=== PATIENT | male | born 1940 | race Caucasian/White ===

== ENCOUNTER → 2016-12-05 | Outpatient (CLI) | payer OTHER ==
[~2016-12-05] MED LIST: METF-384 PO
[2016-12-05 12:25] LABS: BLOOD UREA NITROGEN 20 mg/dl (7-18); CARBON DIOXIDE 26 mmol/L (21-32); CHLORIDE 106 mmol/L (98-107); GLUCOSE 160 mg/dl (70-99); POTASSIUM 3.6 mmol/L (3.5-5.1); SODIUM 140 mmol/L (136-145)
[2016-12-05 12:40] LABS: CALCIUM 9.9 mg/dl (8.5-10.1)
[2016-12-05 13:16] LABS: ESTIMATED AVERAGE GLUCOSE 137 mg/dl; HA1C FLAG Normal (Normal)
== END | disposition home or self-care (01) ==
LOC: C.LABPVFM 10:50
PROVIDERS: ATTEND Family Medicine
DX: E11.65 Type 2 diabetes mellitus with hyperglycemia (principal)

== ENCOUNTER → 2017-05-09 | Outpatient (CLI) | payer OTHER ==
[2017-05-09 12:41] LABS: BLOOD UREA NITROGEN 28 mg/dl (7-18); BUN/CREATININE RATIO 31.1 (10-20); CALCIUM 8.9 mg/dl (8.5-10.1); CARBON DIOXIDE 25 mmol/L (21-32); CHLORIDE 108 mmol/L (98-107); CHOLESTEROL 187 mg/dl (0-200); CREATININE 0.91 mg/dl (0.60-1.40); GLUCOSE 128 mg/dl (70-99); POTASSIUM 3.5 mmol/L (3.5-5.1); SODIUM 141 mmol/L (136-145)
[2017-05-09 12:44] LABS: CHOLESTEROL/HDL RATIO 2.9; HDL CHOLESTEROL 64 mg/dl; LDL CHOLESTEROL CALCULATED 110 mg/dl; TRIGLYCERIDES 65 mg/dl (0-150); VERY LOW DENSITY LIPOPROT CALC 13 mg/dl
[2017-05-09 13:42] LABS: ESTIMATED AVERAGE GLUCOSE 131 mg/dl; HA1C FLAG Normal (Normal)
== END | disposition home or self-care (01) ==
LOC: C.LABPVFM 07:40
PROVIDERS: ATTEND Family Medicine
DX: Z00.00 Encounter for general adult medical examination without abnormal findings (principal); E11.65 Type 2 diabetes mellitus with hyperglycemia; E78.5 Hyperlipidemia, unspecified

== ENCOUNTER → 2017-10-15 | Outpatient (CLI) | payer BC ==
[2017-10-15 17:56] LABS: BLOOD UREA NITROGEN 22 mg/dl (7-18); CALCIUM 8.7 mg/dl (8.5-10.1); CARBON DIOXIDE 25 mmol/L (21-32); CREATININE 0.94 mg/dl (0.60-1.40); GLUCOSE 115 mg/dl (70-99); POTASSIUM 3.8 mmol/L (3.5-5.1); SODIUM 138 mmol/L (136-145)
[2017-10-16 05:56] LABS: HEMOGLOBIN A1C 6.3 % (4.5-5.6)
== END | disposition home or self-care (01) ==
LOC: C.LABPVFM 11:23
PROVIDERS: ATTEND Family Medicine
DX: I10 Essential (primary) hypertension (principal); E11.9 Type 2 diabetes mellitus without complications

== ENCOUNTER → 2018-03-05 | Outpatient (CLI) | payer BC ==
[2018-03-05 13:17] LABS: BASO % 0.6 %; BASO ABS # 0.04 K/uL (0-0.2); EOS % 1.7 %; EOS ABS # 0.12 K/uL (0-0.5); HEMATOCRIT 38.8 % (42-52); HEMOGLOBIN 13.3 g/dL (14.0-18.0); IG# 0.01 K/uL (0.00-0.02); LYMPH % 23.8 %; LYMPH ABS # 1.64 K/uL (1.2-3.4); MEAN CELL VOLUME 91.1 fL (80-100); MEAN CORPUSCULAR HEMOGLOBIN 31.2 pg (25-34); MEAN CORPUSCULAR HGB CONC 34.3 g/dl (32-36); MEAN PLATELET VOLUME 9.9 fL (7.4-10.4); MONO % 5.5 %; MONO ABS # 0.38 K/uL (0.11-0.59); NEUT % 68.3 %; NEUT ABS # 4.71 K/uL (1.4-6.5); PLATELET COUNT 263 K/uL (130-400); RED CELL DISTRIBUTION WIDTH CV 13.6 % (11.5-14.5); RED CELL DISTRIBUTION WIDTH SD 44.9 fL (36.4-46.3)
[2018-03-05 14:19] LABS: HEMOGLOBIN A1C 6.6 % (4.5-5.6)
[2018-03-05 14:21] LABS: ALBUMIN 3.8 gm/dl (3.4-5.0); ALKALINE PHOSPHATASE 76 U/L (45-117); ALT/SGPT 18 U/L (12-78); AST/SGOT 14 U/L (15-37); BLOOD UREA NITROGEN 27 mg/dl (7-18); CALCIUM 8.4 mg/dl (8.5-10.1); CARBON DIOXIDE 23 mmol/L (21-32); CHOLESTEROL 166 mg/dl (0-200); CREATININE 1.01 mg/dl (0.60-1.40); GLUCOSE 125 mg/dl (70-99); LDL CHOLESTEROL CALCULATED 88 mg/dl; POTASSIUM 3.6 mmol/L (3.5-5.1); SODIUM 136 mmol/L (136-145); TOTAL PROTEIN 7.6 gm/dl (6.4-8.2)
== END | disposition home or self-care (01) ==
LOC: C.LABPVFM 08:53
PROVIDERS: ATTEND Family Medicine
DX: Z87.19 Personal history of other diseases of the digestive system (principal)

== ENCOUNTER 2025-06-11 13:03 | Inpatient (IN) ==
--- NOTE | 2025-06-11 13:56 | Emergency Department Note ---
Impression & Plan Biliary obstruction, Jaundice, Liver mass ED Provider Note Name: JULIANNE HENDRICKSON Age: 85 Sex: Male Arrives Via: Walk-In Informant: Patient, daughter, patient ED Provider: Anthony Albarado MD Chief Complaint: Jaundice Impression: As per impression above Medical Decision Makin-year-old gentleman arrives for evaluation of jaundice. Patient notes that he has been having worsening yellowing of skin over the last week and a half or so associate with itching and difficulty sleeping. Family eventually convinced patient to come into the ER today. Patient denies any abdominal pain or other concerning signs or symptoms. Examination he is severely jaundice but tired appearing but otherwise no distress with good vital signs. Laboratory workup obtained does reveal significantly elevated bilirubin with mild hyponatremia. A CT scan of the abdomen pelvis with IV contrast does reveal a large mass at the central liver/gallbladder likely obstructing the biliary drain. Discussed with patient and daughter. They were understandably upset. Discussed the need for a higher level of care given the fact that this will need advanced ERCP and availability here is unable to go biliary bifurcation. They agreeable to transfer. Patient is stable. He is having some increasing itching thus was given IV Benadryl. Had multiple long discussions with [facility] transfer center. After extensive discussion with surgeon oncologist and ERCP specialist plan will be to admit the patient to our facility to further stabilize and continue workup. They will be unable to do the ERCP until Sunday or Sunday. Given the patient's age and frail status it would be reasonable to keep him here until bed is available at their facility and we can transfer him down. In mean time [facility] has requested CT Chest be obtained, as well as sending a CA 19-9 level. Patient is afebrile I do not feel this is infectious I would hold off on any antibiotics at this time. Rediscussed with team here. Given mildly elevated INR with obstruction will give some Vitamin K Triage/Nursing Notes reviewed by Me External Chart Review by me: PCP note from 02/04 was reviewed for past medical history Differential:Liver cancer, gallbladder cancer urine biliary obstruction, close pharmacy is recommending pancreatic cancer, cholangitis, anemia/hemolytic, many other pathologies considered Vital Signs: reviewed and remarkable for no significant abnormalities Interventions: Normal saline bolus, Benadryl IV Labs:ED labs Reviewed by me and remarkable for elevated bilirubin 27, mild hyponatremia 128, INR 1.3, bicarb 15, AST 48 and alk phos 513 Imaging: X ray results are stated below per my interpretation: Chest: 1 view: No infiltrate, no effusion, normal cardiac border. CT abdomen pelvis with IV contrast as per my informal interpretation of the central right liver near the gallbladder with surrounding edema. EKG:As per my interpretation. Indication weakness. Sinus rhythm 87 beats minute QTc of 457. There is no ectopy nor ischemia. No previous for comparison. Cardiac/Tele Monitoring: Cardiac Monitoring: An Order was placed for continuous cardiac monitoring. The monitor shows a rate of 80 with a normal sinus rhythm. Consults:Discussed with Dr. oLtt of gastroenterology here [facility] who feels patient would likely benefit from a tertiary center at this point. Does not feel he would be able to pass a stent past the bifurcation at this point. Reviewed with Dr Virk & Dr Tom at [facility]. Extensive discussion. Plan bring in [facility] and await Sunday before sending down when ERCP available on Sunday there. In mean time optimize medically and further testing. Discussed with Dr Hubbard [place] Hospitalist. Plan: Disposition:Transfer accepted at [facility] however due to no beds will plan to admit to our facility until beds are available and they have ERCP capability. Condition: Fair History of Present Illness: 85-year-old male arrives for evaluation of jaundice. Patient states that he has been having itching over the last several days. Family notes that he has been quite yellow over the last week. He been urinating what looked like blood at home. Patient notes that he feels very tired and exhausted. He does not well. He denies any abdominal pain, back pain, chest pain, shortness of breath, headache, neck pain, leg swelling or any other concerning signs or symptoms. Other than feeling tired he states he has been doing his normal activities. He has no history of abdominal issues. He does have a history of diabetes. He has no previous abdominal surgeries. Past Medical History: Diabetes and hypertension and dyslipidemia Home Medications: Metformin, alfuzosin, tadalafil Allergies: Jardiance Vitals:Blood Pressure: 119/68, Pulse 88, RR 16, T 36.5C, O2 94% on RA Physical Exam: GENERAL: Patient is tired appearing and in minimal distress. Very jaundice RESPIRATORY: No dyspnea. Clear to auscultation and equal bilaterally other than some crackles at bases. CARDIOVASCULAR: Regular rate and rhythm.No murmur appreciated. GASTROINTESTINAL: Abdomen soft, non-tender, no peritonitis. EXTREMITIES: Jaundice, trace bilateral ankle edema. Normal motion all extremities, no cyanosis, no edema. NEUROLOGIC: Alert and oriented. No focal neurologic deficits appreciated SKIN: No rash, no jaundice, no diaphoresis. PSYCH: Appropriate GCS: 15 ED Course: Times/Reassessments: Multiple repeat evaluation of the patient. Stable throughout. Did note worsening itching thus was ordered Benadryl. Critical Care: I have personally spent 40 minutes of critical care time in the direct management of this patient. Acute obstructive biliary pathology secondary to mass causing severe elevation of bilirubin putting patient at significantly high risk 3-month mortality with extended coordination of care between tertiary care center and this facility. This was a life/limb threatening event. This 40 minutes is in excess of all separately billable procedures. Anthony Albarado MD Past Med/Surg History Problem List (Updated 06/12/25 @ 00:08 by Will Hubbard MD) Elevated INR Metabolic acidosis, normal anion gap (NAG) Anemia Liver mass (Acute) Jaundice (Acute) Biliary obstruction (Acute) ED (erectile dysfunction) Left knee pain HTN (hypertension) (Chronic) Hyperlipidemia (Chronic) DM (diabetes mellitus) (Chronic) Routine health maintenance (Chronic) Crushing injury of fifth finger of right hand (Acute) Finger laceration with complication (Acute) Nailbed laceration, finger (Acute) Nailbed laceration, finger (Acute) Open fracture of tuft of distal phalanx of finger (Acute) Medical History (Updated 06/12/25 @ 00:08 by Will Hubbard MD) No pertinent past medical history Surgical History No history of previous surgery Family History Other No pertinent family history Denies family history of Ovarian cancer Prostate cancer Myocardial infarction Breast cancer Colorectal cancer Social History Smoking Status: Current some day smoker Tobacco Type: Cigarettes Age Started Using Tobacco: 19; packs per day: 0.2; Cigarettes Per Day: 0-3 a day; Second Hand Exposure: No; Do You Dip or Chew Tobacco: No; Tobacco Cessation Education Requested by Patient: No Hx Alcohol Use: Yes Alcohol type: beer Alcohol Intake Frequency: 4 or More x per/Week Alcohol Intake Frequency Comment: One beer in the evening daily Hx Substance Use: No Preferred Language: Polish Communication Ability: Effective Hearing Ability: Normal Homicide Investigator Required: No Beliefs That Will Affect Care: Mormon marital status: / Current Living Situation: Alone current occupational status: retired How many Children do You have: 3 Other Information That Helps Us Care for You: No Feels Safe at Home: Yes Safety Concerns: Feels Safe At This Time Childhood Exposure to Second-Hand Smoke: Yes Diet: diabetic and regular caffeine: Yes (Coffee ) during the past year weight has: remained stable Dental Care, Regularly: No Physical Activity Frequency: Daily Physical Activity Frequency Comment: Daily house and yard work Seatbelt Use: always Sunscreen Use: No Do you think of yourself as: straight/heterosexual Sexual Activity: has been sexually active, but not for at least 12 months Gender Identity: Male Assistive Devices: Glasses Allergies Allergies Allergy/AdvReac Type Severity Reaction Status Date / Time empagliflozin Allergy Mild Fatigued Verified 06/11/25 16:10 [From Jardiance] Home Meds Home Medications Medication Instructions Recorded Confirmed alfuzosin 10 mg tablet,extended 10 mg PO QPM 06/11/25 06/11/25 release 24 hr metformin 1,000 mg tablet 1,000 mg PO BID 06/11/25 06/11/25 Previous Rx's Medication Instructions Recorded blood sugar diagnostic #50 ea 01/19/25 tadalafil 5 mg tablet 5 mg PO DAILY PRN sexual activity 02/04/25 #10 tabs Results & Data (ED) Vital Signs Vital Signs - 24 hr 06/11/25 14:12 06/11/25 14:21 06/11/25 14:24 Pulse Rate 63 84 88 Pulse Rate from SpO2 Sensor 64 84 89 Respiratory Rate 15 16 27 H Blood Pressure Blood Pressure Mean Pulse Oximetry 99 99 99 06/11/25 14:30 06/11/25 14:30 06/11/25 14:33 Pulse Rate 79 Pulse Rate from SpO2 Sensor Respiratory Rate Blood Pressure 136/88 136/88 Blood Pressure Mean 107 107 Pulse Oximetry 06/11/25 14:33 06/11/25 14:57 06/11/25 15:00 Pulse Rate 82 Pulse Rate from SpO2 Sensor 80 80 Respiratory Rate 14 13 Blood Pressure 148/82 H Blood Pressure Mean 96 Pulse Oximetry 99 99 06/11/25 15:00 06/11/25 15:18 06/11/25 15:30 Pulse Rate Pulse Rate from SpO2 Sensor 72 77 Respiratory Rate 19 14 Blood Pressure 149/96 H Blood Pressure Mean 126 Pulse Oximetry 100 99 06/11/25 15:39 06/11/25 15:48 06/11/25 15:51 Pulse Rate 88 89 84 Pulse Rate from SpO2 Sensor 93 H 90 86 Respiratory Rate 16 15 13 Blood Pressure 164/80 H Blood Pressure Mean 108 Pulse Oximetry 100 100 100 06/11/25 16:10 06/11/25 16:12 06/11/25 16:36 Pulse Rate 87 81 Pulse Rate from SpO2 Sensor 88 81 Respiratory Rate 26 H 14 Blood Pressure 164/80 H Blood Pressure Mean 122 Pulse Oximetry 100 99 06/11/25 16:48 Pulse Rate 82 Pulse Rate from SpO2 Sensor 82 Respiratory Rate 17 Blood Pressure Blood Pressure Mean Pulse Oximetry 99 Laboratory Data 06/12/25 07:10 06/12/25 07:10 Lab Results 06/11/25 Range/Units 13:31 WBC 7.24 (4.8-10.8) K/ul RBC 3.37 L (4.70-6.10) M/uL Hgb 10.1 L (14.0-18.0) g/dl Hct 28.2 L (42.0-52.0) % MCV 83.7 (80.0-100.0) fL MCH 30.0 (25.0-34.0) pg MCHC 35.8 (32.0-36.0) g/dL RDW Std Deviation 57.3 H (36.4-46.3) fL RDW Coeff of Javier 19.2 H (11.5-14.5) % Plt Count 425 H (130-400) K/uL MPV 9.4 (9.4-12.4) fL Immature Gran % (Auto) 1.2 % Neut % (Auto) 75.9 % Lymph % (Auto) 13.0 % Dawes % (Auto) 7.3 % Eos % (Auto) 1.4 % Baso % (Auto) 1.2 % Neut # (Auto) 5.49 (1.40-6.50) K/uL Lymph # (Auto) 0.94 L (1.20-3.40) K/uL Dawes # (Auto) 0.53 (0.11-0.59) K/uL Eos # (Auto) 0.10 (0.00-0.50) K/uL Baso # (Auto) 0.09 (0.00-0.20) K/uL Immature Gran # (Auto) 0.09 (0.01-0.20) K/uL PT 13.4 H (9.0-12.0) Seconds INR 1.3 H (0.9-1.1) APTT 28 (21-31) Seconds PTT Ratio 1.0 Sodium 128 L (136-145) mmol/L Potassium 3.6 (3.5-5.1) mmol/L Chloride 99 (98-107) mmol/L Carbon Dioxide 18 L (21-32) mmol/L Anion Gap 11 (3-11) BUN 21 (6-23) mg/dl Creatinine 1.19 (0.6-1.4) mg/dl Est Cr Clr Drug Dosing 51.0 ml/min eGFR 60.23 BUN/Creatinine Ratio 17.6 (10-20) Glucose 209 H (70-99(Fasting)) mg/dl Calcium 9.0 (8.6-10.3) mg/dl Total Bilirubin 27.7 H (0.2-1.0) mg/dl AST 48 H (13-39) U/L ALT 42 (7-52) U/L Alkaline Phosphatase 513 H (34-104) U/L Troponin I High Sens 9.1 (0-20) pg/ml Total Protein 7.1 (6.0-8.3) gm/dl Albumin 3.4 (3.4-5.0) gm/dl Globulin 3.7 (2.5-4.0) gm/dl Albumin/Globulin Ratio 0.9 (0.9-2) Lipase TNP Administered Medications Acetaminophen (Acetaminophen 325 Mg Tab) 650 mg PO Q4H PRN PRN Reason: Pain or Fever Stop: 07/12/25 12:40 Last Admin: 06/12/25 13:07 Dose: 650 mg Documented By: RONNIE Cholestyramine Resin (Cholestyramine Light 4 Gm Pkt) 4 gm PO BID@1000,2200 MOUNA Stop: 07/11/25 21:59 Last Admin: 06/12/25 08:51 Dose: 4 gm Documented By: Admin: 06/11/25 23:11 Dose: 4 gm Documented By: SORIN Enoxaparin Sodium (Enoxaparin Inj 40 Mg/0.4 Ml Syr) 40 mg SQ QPM MOUNA Stop: 07/11/25 20:59 Last Admin: 06/11/25 21:05 Dose: 40 mg Documented By: SORIN Insulin Aspart (Insulin Aspart Per Unit Charge) 0 units SC ACHS MOUNA Stop: 07/11/25 20:59 Last Admin: 06/12/25 11:59 Dose: 3 units Documented By: RONNIE Co-signed By: DARIAN Admin: 06/12/25 08:50 Dose: 1 units Documented By: RONNIE Co-signed By: DARIAN Admin: 06/11/25 20:48 Dose: 1 units Documented By: SORIN Co-signed By: FARIDEH Tamsulosin HCl (Tamsulosin Hcl 0.4 Mg Cap) 0.4 mg PO QPM MOUNA Stop: 07/11/25 20:59 Last Admin: 06/11/25 21:05 Dose: 0.4 mg Documented By: SORIN Discontinued Medications Diphenhydramine HCl (Diphenhydramine 50 Mg/Ml Vial) 25 mg IV NOW STA Stop: 06/11/25 15:40 Last Admin: 06/11/25 15:45 Dose: 25 mg Documented By: JORDI Diphenhydramine HCl (Diphenhydramine 50 Mg/Ml Vial) 12.5 mg IV ONE ONE Stop: 06/12/25 01:50 Last Admin: 06/12/25 02:20 Dose: 12.5 mg Documented By: SORIN Sodium Chloride (Nss) 1,000 mls @ 125 mls/hr IV .Q8H STA Stop: 06/12/25 00:33 Last Infusion: 06/11/25 19:00 Dose: Infused Documented By: Admin: 06/11/25 16:45 Dose: 125 mls/hr Documented By: JORDI Sodium Bicarbonate 150 meq/ (Dextrose) 1,150 mls @ 100 mls/hr IV .[id number] MOUNA Stop: 06/12/25 04:14 Last Infusion: 06/12/25 05:01 Dose: Infused Documented By: Admin: 06/11/25 17:23 Dose: 100 mls/hr Documented By: JORDI Phytonadione 5 mg/ Dextrose 50.5 mls @ 101 mls/hr IV ONE ONE Stop: 06/12/25 00:31 Last Infusion: 06/12/25 01:01 Dose: Infused Documented By: Admin: 06/12/25 00:22 Dose: 101 mls/hr Documented By: SORIN Ioversol (Optiray 320 100ml) 92 ml IV ONCE ONE Stop: 06/11/25 14:51 Last Admin: 06/11/25 14:50 Dose: 92 ml Documented By: GREGORIO Ioversol (Optiray 320 100ml) 90 ml IV ONCE ONE Stop: 06/11/25 18:00 Last Admin: 06/11/25 17:59 Dose: 90 ml Documented By: SNOW Lidocaine (Lidocaine 5% 1 Patch) 1 patch TD NOW STA Stop: 06/12/25 01:49 Last Admin: 06/12/25 03:19 Dose: 1 patch Documented By: SORIN Potassium Chloride (Potassium Chloride Crtab 20 Meq Tabcr) 40 meq PO NOW STA Stop: 06/12/25 10:32 Last Admin: 06/12/25 12:02 Dose: 40 meq Documented By: RONNIE Imaging Data Radiologist's Impression: Chest X-Ray 06/11/25 13:16 XR chest 1V portable CLINICAL HISTORY: Chest pain, nonspecific COMPARISON STUDY: None FINDINGS: Heart size and pulmonary vasculature are normal. There is mild stranding at the right lung base medially with partial obscuration of the right hemidiaphragm. No other consolidation or pleural effusion seen. No pneumothorax. IMPRESSION: Atelectasis versus early pneumonia right lung base. ACT 112: Negative or not required by law. Electronically signed by: Hu Laird M.D. 06/11/2025 2:03 PM Abdomen/Pelvis CT 06/11/25 14:[address] WITH IV CONTRAST CT DOSE: 1583.95 mGy.cm HISTORY: painless jaundice TECHNIQUE: Multiaxial CT images of the abdomen and pelvis were performed following the IV administration of 90 cc of Optiray, A dose lowering technique was utilized adhering to the principles of ALARA. COMPARISON STUDY: None FINDINGS: There is mild scarring or atelectasis in the lung bases. There are coronary artery calcifications. ABDOMEN: There are gallstones without evidence of acute cholecystitis. One of the gallstones is at the gallbladder neck or proximal cystic duct. There is a 7 cm lobulated hypodense mass anterior right hepatic lobe which invades or originates from the gallbladder. The mass invades the region of the confluence of the right and left hepatic ducts and proximal common bile duct. There is mild to moderate intrahepatic biliary dilatation. Mid to distal common bile duct is nondilated. Spleen, pancreas, and adrenal glands are unremarkable. Kidneys show no hydronephrosis. There are scattered atherosclerotic calcifications. No abdominal aortic aneurysm. Pelvis: Prostate is markedly enlarged. Urinary bladder is distended. There is sigmoid diverticulosis. No acute diverticulitis. No bowel inflammation or obstruction. Normal appendix. No enlarged adenopathy. Osseous structures: There is moderate lumbar degenerative disc disease. There are moderate degenerative changes at the hips. IMPRESSION: Malignant appearing mass involving the central liver and gallbladder causing mild to moderate intrahepatic biliary dilatation. Differential diagnosis includes gallbladder carcinoma and cholangiocarcinoma. No evidence of metastatic disease seen. Otherwise as described. ACT 112: Positive. There are findings on this exam that require communication between the performing entity and the patient following Patient Test Result Information Act ([place] Act 112) guidelines. The above report was generated using voice recognition software. It may contain grammatical, syntax or spelling errors. Electronically signed by: Hu Laird M.D. 06/11/2025 3:16 PM Discharge Plan Visit Data Chief Complaint: Referred by Doctor Stated Complaint: JAUNDICE, BLOOD IN URINE, ITCHY ALL OVER ED Provider: Anthony Albarado Discharge Problem: Biliary obstruction, Jaundice, Liver mass Patient Disposition: Admitted As Inpatient Condition: Fair Discharge Instructions Interventions: ED Discharge Assessment Last Done: 06/11/25 19:55
[2025-06-11 14:01] LABS: Hematocrit (blood only) 28.2 % (42.0-52.0); Hemoglobin 10.1 g/dl (14.0-18.0); Immature Granulocytes # (auto) 0.09 K/uL (0.01-0.20); Immature Granulocytes % (auto) 1.2 %; Mean Corpuscular Hemoglobin 30.0 pg (25.0-34.0); Mean Corpuscular Volume 83.7 fL (80.0-100.0); Platelet Count 425 K/uL (130-400); RDW Standard Deviation 57.3 fL (36.4-46.3); Red Blood Count 3.37 M/uL (4.70-6.10); White Blood Count 7.24 K/ul (4.8-10.8)
--- NOTE | 2025-06-11 14:05 | XRay Report ---
XR chest 1V portable CLINICAL HISTORY: Chest pain, nonspecific COMPARISON STUDY: None FINDINGS: Heart size and pulmonary vasculature are normal. There is mild stranding at the right lung base medially with partial obscuration of the right hemidiaphragm. No other consolidation or pleural effusion seen. No pneumothorax. IMPRESSION: Atelectasis versus early pneumonia right lung base. ACT 112: Negative or not required by law. Electronically signed by: Hu Laird M.D. 06/11/2025 2:03 PM
[2025-06-11 14:20] LABS: Alanine Aminotransferase 42 U/L (7-52); Albumin Globulin Ratio 0.9 (0.9-2); Albumin Level 3.4 gm/dl (3.4-5.0); Alkaline Phosphatase 513 U/L (34-104); Anion Gap 11 (3-11); Bilirubin,Total 27.7 mg/dl (0.2-1.0); Blood Urea Nitrogen 21 mg/dl (6-23); Calcium 9.0 mg/dl (8.6-10.3); Carbon Dioxide 18 mmol/L (21-32); Chloride 99 mmol/L (98-107); Creatinine Clr Calc Pharmacy 51.0 ml/min; Globulin 3.7 gm/dl (2.5-4.0); Glucose 209 mg/dl (70-99(Fasting)); Potassium 3.6 mmol/L (3.5-5.1); Sodium 128 mmol/L (136-145); Total Protein 7.1 gm/dl (6.0-8.3)
[2025-06-11 14:29] LABS: INR 1.3 (0.9-1.1); Partial Thromboplastin Time 28 Seconds (21-31); Prothrombin Time 13.4 Seconds (9.0-12.0)
[2025-06-11] MEDS: OPTIRAY 320 100ml IV ONE ×2 (14:50→17:59)
--- NOTE | 2025-06-11 15:18 | CT Scan Report ---
ABDOMEN AND PELVIS CT WITH IV CONTRAST CT DOSE: 1583.95 mGy.cm HISTORY: painless jaundice TECHNIQUE: Multiaxial CT images of the abdomen and pelvis were performed following the IV administrat ion of 90 cc of Optiray, A dose lowering technique was utilized adhering to the principles of ALARA. COMPARISON STUDY: None FINDINGS: There is mild scarring or atelectasis in the lung bases. There are coronary artery calcific ations. ABDOMEN: There are gallstones without evidence of acute cholecystitis. One of the gallstones is at th e gallbladder neck or proximal cystic duct. There is a 7 cm lobulated hypodense mass anterior right h epatic lobe which invades or originates from the gallbladder. The mass invades the region of the conf luence of the right and left hepatic ducts and proximal common bile duct. There is mild to moderate i ntrahepatic biliary dilatation. Mid to distal common bile duct is nondilated. Spleen, pancreas, and a drenal glands are unremarkable. Kidneys show no hydronephrosis. There are scattered atherosclerotic c alcifications. No abdominal aortic aneurysm. Pelvis: Prostate is markedly enlarged. Urinary bladder is distended. There is sigmoid diverticulosis. No acute diverticulitis. No bowel inflammation or obstruction. Normal appendix. No enlarged adenopat hy. Osseous structures: There is moderate lumbar degenerative disc disease. There are moderate degenerati ve changes at the hips. IMPRESSION: Malignant appearing mass involving the central liver and gallbladder causing mild to mode rate intrahepatic biliary dilatation. Differential diagnosis includes gallbladder carcinoma and chola ngiocarcinoma. No evidence of metastatic disease seen. Otherwise as described. ACT 112: Positive. There are findings on this exam that require communication between the performing entity and the patient following Patient Test Result Information Act ([place] Act 112) guidelines. The above report was generated using voice recognition software. It may contain grammatical, syntax o r spelling errors. Electronically signed by: Hu Laird M.D. 06/11/2025 3:16 PM
[2025-06-11] MEDS: diphenhydrAMINE 50 MG/ML VIAL IV STA (15:45)
--- NOTE | 2025-06-11 15:56 | Electrocardiogram Report ---
Test Reason : Blood Pressure : */* mmHG Vent. Rate : 87 BPM Atrial Rate : 87 BPM P-R Int : 190 ms QRS Dur : 98 ms QT Int : 380 ms P-R-T Axes : 42 -18 37 degrees QTcB Int : 457 ms Normal sinus rhythm Normal ECG No previous ECGs available Confirmed by Erich Hernandez ([id number]) on 06/11/2025 3:56:15 PM Referred By: Confirmed By: Erich Hernandez
[2025-06-11] MEDS ORDERED: STAT IV/IM STA (16:44)
[2025-06-11] MEDS: SODIUM CHLORIDE 0.9% 1,000 ML IV STA (16:45)
[2025-06-11 17:13] LABS: Base Excess VBG -5.1 mEq/L; HCO3 VBG 20 mmol/L; Oxygen Saturation VBG < 60.0 %; PCO2 VBG 36 mmHg (38-50); PO2 VBG 30 mmHg; pH VBG 7.35 (7.36-7.41)
--- NOTE | 2025-06-11 17:14 | History & Physical Report ---
Date of Service June 11, 2025 Assessment & Plan (1) Anemia: (2) Metabolic acidosis, normal anion gap (NAG): (3) DM (diabetes mellitus): (4) Hyperlipidemia: (5) HTN (hypertension): (6) Biliary obstruction: (7) Jaundice: (8) Liver mass: (9) Elevated INR: Plan 85 year old male presents to the ER with jaundice and icteric pruritus #Malignant appearing mass with biliary obstruction Discussed with ER provider and planned transfer to [facility] Agree with admission rather than discharge due to higher risk of sepsis - if patient were to spike a fever would need IV Zosyn, close monitoring for vasopressors and emergent transfer to [place] Otherwise if stable, will monitor LFTs and transfer to [place] whenever bed is available - latest Sunday as planning ERCP on Sunday Low fat diet Lipase sent but no abdominal pain on exam or pancreatitis findings on CT to suggest need for urgent transfer for this - will need to be send out given icteric blood No current fever or WBC to suggest current infection CA19-9 recommended by [facility] although I am more concerned about mass from his liver and will send AFP in addition CT chest also recommended by [facility] which appears reasonable as if malignancy perhaps we can biopsy something easier than the liver mass Start cholestyramine for icteric pruritus - although ultimate treatment is biliary drainage/stenting #Anemia Basic workup with AM labs, iron studies, B12, folate, retic count, LDH #Elevated INR Vitamin K 5mg IV Repeat INR with AM labs #Metabolic acidosis with normal anion gap / hyponatremia Mild, hypovolemic on exam with dry mucus membranes VBG pH 7.35, will give 1L sodium bicarb overnight 150 meq, repeat BMP with AM labs #Type 2 diabetes mellitus HbA1C with AM labs, previously 8.[address] metformin on hold due to scans with IV contrast Novolog as needed for correction factor overnight, will add Lantus tomorrow if needing this routinely #BPH Continue alfuzosin VTE Prophylaxis - Lovenox 40mg SQ daily Disposition - admit to med/surg Admission and Anticipated Discharge Date Admission Date: June 12, 2025 History of Present Illness Chief Complaint: Jaundiced Primary Care Provider: Tamar Oneill MD Phil Landrum is an 85 year old male who presents to the ER due to jaundice and generalized itching. He reports much worse the last 3-4 days but perhaps started noticing changes the last week. Associated with dark urine last few days. He denies any weight loss, appetite loss, change in bowels, abdominal pain, nausea or vomiting. He notes generalized intense itching. No other urinary or respiratory issues. Allergies Allergy/AdvReac Type Severity Reaction Status Date / Time empagliflozin Allergy Mild Fatigued Verified 06/11/25 16:10 [From [facility]] Home Medications Medication Instructions Recorded Confirmed Type blood sugar diagnostic #50 ea 01/19/25 02/04/25 Rx tadalafil 5 mg tablet 5 mg PO DAILY PRN sexual activity 02/04/25 06/11/25 Rx #10 tabs alfuzosin 10 mg tablet,extended 10 mg PO QPM 06/11/25 06/11/25 History release 24 hr metformin 1,000 mg tablet 1,000 mg PO BID 06/11/25 06/11/25 History Past Med/Surg History Problem List (Updated 06/12/25 @ 00:08 by Will Hubbard MD) Elevated INR Metabolic acidosis, normal anion gap (NAG) Anemia Liver mass (Acute) Jaundice (Acute) Biliary obstruction (Acute) ED (erectile dysfunction) Left knee pain HTN (hypertension) (Chronic) Hyperlipidemia (Chronic) DM (diabetes mellitus) (Chronic) Routine health maintenance (Chronic) Crushing injury of fifth finger of right hand (Acute) Finger laceration with complication (Acute) Nailbed laceration, finger (Acute) Nailbed laceration, finger (Acute) Open fracture of tuft of distal phalanx of finger (Acute) Medical History (Updated 06/12/25 @ 00:08 by Will Hubbard MD) No pertinent past medical history Surgical History No history of previous surgery Family History Other No pertinent family history Denies family history of Ovarian cancer Prostate cancer Myocardial infarction Breast cancer Colorectal cancer Social History Smoking Status: Current some day smoker Tobacco Type: Cigarettes Age Started Using Tobacco: 19; packs per day: 0.2; Cigarettes Per Day: 0-3 a day; Second Hand Exposure: No; Do You Dip or Chew Tobacco: No; Tobacco Cessation Education Requested by Patient: No Hx Alcohol Use: Yes Alcohol type: beer Alcohol Intake Frequency: 4 or More x per/Week Alcohol Intake Frequency Comment: One beer in the evening daily Hx Substance Use: No Preferred Language: Slovenian Communication Ability: Effective Hearing Ability: Normal Grape Grower Required: No Beliefs That Will Affect Care: Cheondoism marital status: / Current Living Situation: Alone current occupational status: retired How many Children do You have: 3 Other Information That Helps Us Care for You: No Feels Safe at Home: Yes Safety Concerns: Feels Safe At This Time Childhood Exposure to Second-Hand Smoke: Yes Diet: diabetic and regular caffeine: Yes (Coffee ) during the past year weight has: remained stable Dental Care, Regularly: No Physical Activity Frequency: Daily Physical Activity Frequency Comment: Daily house and yard work Seatbelt Use: always Sunscreen Use: No Do you think of yourself as: straight/heterosexual Sexual Activity: has been sexually active, but not for at least 12 months Gender Identity: Male Assistive Devices: Glasses Review of Systems Review of Systems: All systems reviewed & are unremarkable except as noted in HPI & below Physical Exam Constitutional: well developed and + ill appearing; + not well nourished and no acute distress Eyes: Icteric sclera ENMT: Mouth: + dry oral mucous membranes Respiratory: normal respiratory effort, lungs clear to auscultation Cardiovascular: RRR, no murmur, no edema Gastrointestinal (Abdomen): normal bowel sounds, soft, nontender, no hepatosplenomegaly Skin: + jaundice Neurologic: moves all extremities and awake; not confused Psychiatric: A+Ox3, euthymic affect Results & Data Results & Data Vital Signs (Past 12 Hours) Vital Signs Temp Pulse Pulse Resp BP BP Pulse Ox 06/11/25 15:51 84 13 164/80 H 100 06/11/25 15:48 89 15 100 06/11/25 15:39 88 16 100 06/11/25 15:30 149/96 H 06/11/25 15:18 14 99 06/11/25 15:00 19 100 06/11/25 15:00 148/82 H 06/11/25 14:57 13 99 06/11/25 14:33 82 14 99 06/11/25 14:33 79 06/11/25 14:30 136/88 06/11/25 14:30 136/88 06/11/25 14:24 88 27 H 99 06/11/25 14:21 84 16 99 06/11/25 14:12 63 15 99 06/11/25 14:06 74 16 153/79 H 99 06/11/25 13:48 88 16 94 06/11/25 13:45 06/11/25 13:13 36.5 C 93 H 18 119/68 98 O2 Del Method O2 Flow Rate 06/11/25 15:51 06/11/25 15:48 06/11/25 15:39 06/11/25 15:30 06/11/25 15:18 06/11/25 15:00 06/11/25 15:00 06/11/25 14:57 06/11/25 14:33 06/11/25 14:33 06/11/25 14:30 06/11/25 14:30 06/11/25 14:24 06/11/25 14:21 06/11/25 14:12 06/11/25 14:06 06/11/25 13:48 Room Air 06/11/25 13:45 Room Air 94 06/11/25 13:13 Room Air Laboratory Results Abnormal lab results 06/11/25 06/11/25 06/11/25 Range/Units 13:31 16:51 20:41 RBC 3.37 L (4.70-6.10) M/uL Hgb 10.1 L (14.0-18.0) g/dl Hct 28.2 L (42.0-52.0) % RDW Std Deviation 57.3 H (36.4-46.3) fL RDW Coeff of Javier 19.2 H (11.5-14.5) % Plt Count 425 H (130-400) K/uL Lymph # (Auto) 0.94 L (1.20-3.40) K/uL PT 13.4 H (9.0-12.0) Seconds INR 1.3 H (0.9-1.1) VBG pH 7.35 L (7.36-7.41) VBG pCO2 36 L (38-50) mmHg Sodium 128 L (136-145) mmol/L Carbon Dioxide 18 L (21-32) mmol/L Glucose 209 H (70-99(Fasting)) mg/dl POC Glucose 179 H (70-99) mg/dl Total Bilirubin 27.7 H (0.2-1.0) mg/dl AST 48 H (13-39) U/L Alkaline Phosphatase 513 H (34-104) U/L Labs reviewed Diagnostic Findings ABDOMEN AND PELVIS CT WITH IV CONTRAST CT DOSE: 1583.95 mGy.cm HISTORY: painless jaundice TECHNIQUE: Multiaxial CT images of the abdomen and pelvis were performed following the IV administration of 90 cc of Optiray, A dose lowering technique was utilized adhering to the principles of ALARA. COMPARISON STUDY: None FINDINGS: There is mild scarring or atelectasis in the lung bases. There are coronary artery calcifications. ABDOMEN: There are gallstones without evidence of acute cholecystitis. One of the gallstones is at the gallbladder neck or proximal cystic duct. There is a 7 cm lobulated hypodense mass anterior right hepatic lobe which invades or originates from the gallbladder. The mass invades the region of the confluence of the right and left hepatic ducts and proximal common bile duct. There is mild to moderate intrahepatic biliary dilatation. Mid to distal common bile duct is nondilated. Spleen, pancreas, and adrenal glands are unremarkable. Kidneys show no hydronephrosis. There are scattered atherosclerotic calcifications. No abdominal aortic aneurysm. Pelvis: Prostate is markedly enlarged. Urinary bladder is distended. There is sigmoid diverticulosis. No acute diverticulitis. No bowel inflammation or obstruction. Normal appendix. No enlarged adenopathy. Osseous structures: There is moderate lumbar degenerative disc disease. There are moderate degenerative changes at the hips. IMPRESSION: Malignant appearing mass involving the central liver and gallbladder causing mild to moderate intrahepatic biliary dilatation. Differential diagnosis includes gallbladder carcinoma and cholangiocarcinoma. No evidence of metastatic disease seen. Otherwise as described. Medications Administered ER Medications Given: Diphenhydramine 25mg IV Normal saline @ 125ml/hr (received minimal amounts of this prior to being discontinued ECG Rate (beats per minute): 87 Rhythm: normal sinus Findings: no acute ischemic change Comparison ECG Date: no prior available Code Status & VTE Plan Code Status DNI/DNR per patient wishes although he will discuss more with his daughter VTE Prophylaxis Plan VTE Prophylaxis will be ordered: Yes PG Care Time/CCT Total # of Minutes Spent Total Time Spent with Patient: Total time spent is greater than 50% in coordination of care (as documented) at patient's floor/unit and/or counseling patient: Coding Level of Care Code 54322 INT INP/OBS CARE MIN Diagnoses Anemia D64.9 Metabolic acidosis, normal anion gap (NAG) E87.20 Type 2 diabetes mellitus without complication, without long-term current use of insulin E11.9 Diabetes mellitus type: type 2 Diabetes mellitus prison insulin use: without prison use Diabetes mellitus complication status: without complication Mixed hyperlipidemia E78.2 Hyperlipidemia type: mixed hyperlipidemia Primary hypertension I10 Hypertension type: primary hypertension Biliary obstruction K83.1 Jaundice R17 Liver mass R16.0 Elevated INR R79.1 (3) DM (diabetes mellitus) Diabetes mellitus type: type 2 Diabetes mellitus rn long term care insulin use: without rn long term care use Diabetes mellitus complication status: without complication Qualified Code(s): E11.9 - Type 2 diabetes mellitus without complications (4) Hyperlipidemia Hyperlipidemia type: mixed hyperlipidemia Qualified Code(s): E78.2 - Mixed hyperlipidemia (5) HTN (hypertension) Hypertension type: primary hypertension Qualified Code(s): I10 - Essential (primary) hypertension
[2025-06-11] MEDS: SODIUM BICARBONATE 8.4% 150 MEQ in DEXTROSE 5% 1,000 ML IV SCH (17:23)
--- NOTE | 2025-06-11 19:03 | CT Scan Report ---
EXAMINATION: Chest CT without CLINICAL HISTORY: Liver cancer, staging evaluation COMPARISON: None TECHNIQUE: Contiguous axial images were obtained through the chest without the use of intravenous contrast. Sagittal and coronal reformations are supplied. FINDINGS: Chest is well-expanded. Diffuse subpleural reticular markings noted. No dominant pulmonary mass, airspace consolidation or pleural effusion. Mild biapical pleural-parenchymal scarring. Trachea and mainstem bronchi are patent. Mild atherosclerotic disease of the aorta. Heart size within normal limits. No mediastinal, hilar or axillary adenopathy. Limited visualization shows a centralized hepatic mass and intrahepatic ductal dilatation at the edge of the [id number]. Correlate clinically. Moderate osseous demineralization noted with mild kyphosis and multilevel anterior bridging osteophytes. No high-grade compression fracture. Allowing for osseous demineralization no definite discrete sclerotic or lytic lesion. Intraosseous hemangiomas present in one of the upper to mid thoracic vertebral bodies. IMPRESSION: No CT evidence of metastatic disease in the chest. A hepatic mass and intrahepatic ductal dilatation present at the edge of the [id number]. Please correlate with prior imaging and history of liver cancer. ACT 112: Positive. There are findings on this examination that require communication between the performing entity and the patient following Patient Test Result Information Act ([place] ACT 112) guidelines. Electronically signed by Kanchan Roth 06-11-2025 7:03 PM
[2025-06-11] MEDS ORDERED: DEXTROSE 50% 50 ML SYRINGE IV PRN (20:25)
[2025-06-11] MEDS ORDERED: GLUCOSE 10 TAB/TUBE PO PRN (20:25)
[2025-06-11] MEDS ORDERED: GLUCAGON FOR INJ 1 MG VIAL SQ PRN (20:25)
[2025-06-11] MEDS ORDERED: GLUCOSE 40% GEL 15 GM TUBE PO PRN (20:25)
[2025-06-11] MEDS ORDERED: CARBOHYDRATES FOR HYPOGLYCEMIA PO PRN (20:25)
[2025-06-11] MEDS: INSULIN ASPART PER UNIT CHARGE SC SCH (20:48)
[2025-06-11] MEDS: TAMSULOSIN HCL 0.4 MG CAP PO SCH (21:05)
[2025-06-11] MEDS: ENOXAPARIN INJ 40 MG/0.4 ML SYR SQ SCH (21:05)
[2025-06-11] MEDS: CHOLESTYRAMINE LIGHT 4 GM PKT PO SCH (23:11)
[2025-06-12] MEDS: PHYTONADIONE 5 MG in DEXTROSE 5% 50 ML IV ONE (00:22)
[2025-06-12] MEDS: diphenhydrAMINE 50 MG/ML VIAL IV ONE (02:20)
[2025-06-12] MEDS: LIDOCAINE 5% 1 PATCH TD STA (03:19)
[2025-06-12 08:04] LABS: Alanine Aminotransferase 40.0 U/L (7-52); Albumin Globulin Ratio 1.1 (0.9-2); Albumin Level 3.4 gm/dl (3.4-5.0); Anion Gap 9.0 (3-11); Bilirubin,Total 25.9 mg/dl (0.2-1.0); Blood Urea Nitrogen 15.0 mg/dl (6-23); Calcium 9.1 mg/dl (8.6-10.3); Carbon Dioxide 26.0 mmol/L (21-32); Chloride 99.0 mmol/L (98-107); Creatinine Clr Calc Pharmacy 54.2 ml/min; Globulin 3.2 gm/dl (2.5-4.0); Glucose 205.0 mg/dl (70-99(Fasting)); INR 1.2 (0.9-1.1); Potassium 3.2 mmol/L (3.5-5.1); Prothrombin Time 12.7 Seconds (9.0-12.0); Sodium 134.0 mmol/L (136-145); Total Protein 6.6 gm/dl (6.0-8.3)
[2025-06-12 08:27] LABS: Hematocrit (blood only) 27.1 % (42.0-52.0); Hemoglobin 10.4 g/dl (14.0-18.0); Mean Corpuscular Hemoglobin 31.6 pg (25.0-34.0); Mean Corpuscular Volume 82.4 fL (80.0-100.0); Platelet Count 406 K/uL (130-400); RDW Standard Deviation 56.2 fL (36.4-46.3); Red Blood Count 3.29 M/uL (4.70-6.10); White Blood Count 5.87 K/ul (4.8-10.8)
[2025-06-12 09:14] LABS: Hemoglobin A1C 7.8 % (4.5-5.6)
[2025-06-12 09:27] LABS: Alkaline Phosphatase 485.0 U/L (34-104)
[2025-06-12] MEDS ORDERED: ACETAMINOPHEN 80 MG CHEWABLE TAB PO PRN (10:37)
[2025-06-12] MEDS: POTASSIUM CHLORIDE CRTAB 20 MEQ TABCR PO STA (12:02)
[2025-06-12] MEDS: ACETAMINOPHEN 325 MG TAB PO PRN (13:07)
--- NOTE | 2025-06-12 14:29 | Hospitalist Progress Note ---
Date of Service June 12, 2025 Assessment & Plan (1) Anemia: (2) Metabolic acidosis, normal anion gap (NAG): (3) DM (diabetes mellitus): (4) Hyperlipidemia: (5) HTN (hypertension): (6) Biliary obstruction: (7) Jaundice: (8) Liver mass: (9) Elevated INR: (10) Lumbosacral radiculopathy at L5: Plan 85 year old male presents to the ER with jaundice and icteric pruritus #Malignant appearing mass with biliary obstruction Discussed with ER provider and planned transfer to [facility] Agree with admission rather than discharge due to higher risk of sepsis - if patient were to spike a fever would need IV Zosyn, close monitoring for vasopressors and emergent transfer to [place] Otherwise if stable, will monitor LFTs and transfer to [place] whenever bed is available - latest Sunday as planning ERCP on Sunday Low fat diet Lipase sent but no abdominal pain on exam or pancreatitis findings on CT to suggest need for urgent transfer for this - will need to be send out given icteric blood No current fever or WBC to suggest current infection Ca19-[address] chest negative for malignancy Continue cholestyramine for icteric pruritus - although ultimate treatment is biliary drainage/stenting #Anemia Basic workup with AM labs, iron studies, B12, folate, retic count, LDH - unfortunately I ordered these after midnight to timed for tomorrow #Elevated INR Vitamin K 5mg IV Repeat INR stable mild downtrending #Metabolic acidosis with normal anion gap / hyponatremia Resolved with sodium bicarbonate 1L, repeat CMP in am #Suspect L5 left radiculopathy Ongoing for last year therefore do not feel obliged for MRI at this time to assess for cancer, full staging can be completed by oncology eventually Acetaminophen 650mg PO q4h PRN, despite liver mass his AST/ALT and platelets are relatively normal #Type 2 diabetes mellitus HbA1C 7.8 Hold metformin due to scans with IV contrast NovoLog total 5 units, will add Lantus 10 units SQ daily and carb ratio on Novolog #BPH Continue alfuzosin VTE Prophylaxis - Lovenox 40mg SQ daily Disposition - admit to med/surg Admission and Anticipated Discharge Date Admission Date: June 11, 2025 Subjective Mainly complaining of left hip pain today which he reports has been ongoing intermittently for the last year. With associated numbness in an L5 distribution. No weakness of the leg and not significantly worse over the last month. Physical Exam Constitutional: well developed and + ill appearing; + not well nourished and no acute distress Eyes: Icteric sclera ENMT: Mouth: + dry oral mucous membranes Respiratory: normal respiratory effort, lungs clear to auscultation Cardiovascular: RRR, no murmur, no edema Gastrointestinal (Abdomen): normal bowel sounds, soft, nontender, no hepatosplenomegaly Musculoskeletal: L5 distribution left numbness, normal plantar/dorsiflexion of ankle Skin: + jaundice Neurologic: moves all extremities and awake; not confused Psychiatric: A+Ox3, euthymic affect Results & Data Results & Data Vital Signs (Past 12 Hours) Vital Signs Temp Pulse Resp BP Pulse Ox O2 Del Method 06/12/25 07:03 36.6 C 64 13 156/76 H 98 Room Air PG Care Time/CCT Total # of Minutes Spent Total Time Spent with Patient: Total time spent is greater than 50% in coordination of care (as documented) at patient's floor/unit and/or counseling patient: Coding Level of Care Code 72736 SUB INP/OBS CARE 2/35MIN Diagnoses Anemia D64.9 Metabolic acidosis, normal anion gap (NAG) E87.20 Type 2 diabetes mellitus without complication, without long-term current use of insulin E11.9 Diabetes mellitus type: type 2 Diabetes mellitus long term acute care registered nurse insulin use: without assisted use Diabetes mellitus complication status: without complication Mixed hyperlipidemia E78.2 Hyperlipidemia type: mixed hyperlipidemia Primary hypertension I10 Hypertension type: primary hypertension Biliary obstruction K83.1 Jaundice R17 Liver mass R16.0 Elevated INR R79.1 Lumbosacral radiculopathy at L5 M54.17 (3) DM (diabetes mellitus) Diabetes mellitus type: type 2 Diabetes mellitus long term acute care registered nurse insulin use: without assisted use Diabetes mellitus complication status: without complication Qualified Code(s): E11.9 - Type 2 diabetes mellitus without complications (4) Hyperlipidemia Hyperlipidemia type: mixed hyperlipidemia Qualified Code(s): E78.2 - Mixed hyperlipidemia (5) HTN (hypertension) Hypertension type: primary hypertension Qualified Code(s): I10 - Essential (primary) hypertension
[2025-06-12] MEDS: LANTUS PER UNIT CHARGE SQ SCH (15:09)
[2025-06-12] MEDS: REMOVE LIDODERM PATCH SCH (15:09)
[2025-06-12] MEDS: INSULIN ASPART PER UNIT CHARGE SC SCH (17:22)
[2025-06-12] MEDS ORDERED: MELATONIN 3 MG TAB PO PRN (23:36)
[2025-06-13] MEDS: MELATONIN 3 MG TAB PO PRN (00:04)
[2025-06-13] MEDS: diphenhydrAMINE Capsule 25 MG CAP PO ONE (02:48)
[2025-06-13 09:28] LABS: Folate (Folic Acid),Ser orPlas 19.3 ng/ml (>5.38)
[2025-06-13 09:29] LABS: Vitamin B12 94.0 pg/ml (180-914)
[2025-06-13 09:34] LABS: Hematocrit (blood only) 29.5 % (42.0-52.0); Hemoglobin 10.5 g/dl (14.0-18.0); Mean Corpuscular Hemoglobin 29.6 pg (25.0-34.0); Mean Corpuscular Volume 83.1 fL (80.0-100.0); Platelet Count 427 K/uL (130-400); RDW Standard Deviation 56.0 fL (36.4-46.3); Red Blood Count 3.55 M/uL (4.70-6.10); Reticulocytes # 0.050 10^6/uL (0.020-0.100); White Blood Count 8.11 K/ul (4.8-10.8)
[2025-06-13 09:55] LABS: Alanine Aminotransferase 46.0 U/L (7-52); Albumin Globulin Ratio 1.0 (0.9-2); Albumin Level 3.6 gm/dl (3.4-5.0); Alkaline Phosphatase 493.0 U/L (34-104); Anion Gap 12.0 (3-11); Bilirubin,Total 28.1 mg/dl (0.2-1.0); Blood Urea Nitrogen 19.0 mg/dl (6-23); Calcium 9.4 mg/dl (8.6-10.3); Carbon Dioxide 21.0 mmol/L (21-32); Chloride 100.0 mmol/L (98-107); Creatinine Clr Calc Pharmacy 46.7 ml/min; Ferritin 745.2 ng/ml (8-388); Globulin 3.5 gm/dl (2.5-4.0); Glucose 192.0 mg/dl (70-99(Fasting)); Iron 102.0 mcg/dl (35-175); Magnesium 1.9 mg/dl (1.7-2.4); Potassium 3.6 mmol/L (3.5-5.1); Sodium 133.0 mmol/L (136-145); Total Iron Binding Cap Calc 322.0 mcg/dl (250-450); Total Protein 7.1 gm/dl (6.0-8.3); Transferrin 230.0 mg/dl (200-360); Transferrin (FE) Percent Satur 32.0 % (20-50)
[2025-06-13] MEDS: CYANOCOBALAMIN 1000 MCG/ML VIAL IM SCH (10:47)
[2025-06-13] MEDS ORDERED: diphenhydrAMINE 50 MG/ML VIAL IV PRN (12:17)
[2025-06-13] MEDS: POT PHOSPHATE MONOBASIC W/ SOD TAB PO SCH (12:27)
--- NOTE | 2025-06-13 15:39 | Hospitalist Progress Note ---
Date of Service June 13, 2025 Assessment & Plan (1) Anemia: (2) Metabolic acidosis, normal anion gap (NAG): (3) DM (diabetes mellitus): (4) Hyperlipidemia: (5) HTN (hypertension): (6) Biliary obstruction: (7) Jaundice: (8) Liver mass: (9) Elevated INR: (10) Lumbosacral radiculopathy at L5: Plan 85 year old male presents to the ER with jaundice and icteric pruritus #Malignant appearing mass with biliary obstruction Discussed with ER provider and planned transfer to [facility] Agree with admission rather than discharge due to higher risk of sepsis - if patient were to spike a fever would need IV Zosyn, close monitoring for vasopressors and emergent transfer to [place] Otherwise if stable, will monitor LFTs and transfer to [place] whenever bed is available - latest Sunday as planning ERCP on Sunday Low fat diet Lipase sent but no abdominal pain on exam or pancreatitis findings on CT to suggest need for urgent transfer for this - will need to be send out given icteric blood No current fever or WBC to suggest current infection Ca19-[address] chest negative for malignancy Continue cholestyramine for icteric pruritus - although ultimate treatment is biliary drainage/stenting, will use diphenhydramine 25mg IV HS tonight by patient request but #Anemia / B12 deficiency Ferritin 745.2, Transferrin sats 32%, B12 94, Folate 19.3 Started cyanocobalamin 1000 mcg IM daily #Hypophosphatemia PO 1.5, start oral supplementation #Elevated INR Vitamin K 5mg IV Repeat INR stable mild downtrending #Metabolic acidosis with normal anion gap / hyponatremia Resolved with sodium bicarbonate 1L, repeat CMP in am #Suspect L5 left radiculopathy Ongoing for last year therefore do not feel obliged for MRI at this time to assess for cancer, full staging can be completed by oncology eventually Acetaminophen 650mg PO q4h PRN, despite liver mass his AST/ALT and platelets are relatively normal #Type 2 diabetes mellitus HbA1C 7.8 Hold metformin due to scans with IV contrast NovoLog total 5 units, continue Lantus 10 units SQ daily and carb ratio on Novolog #BPH Continue alfuzosin VTE Prophylaxis - Lovenox 40mg SQ daily Disposition - admit to med/surg, transfer to [facility] when bed available Admission and Anticipated Discharge Date Admission Date: June 11, 2025 Subjective Main complaint from patient is ongoing itching and he has been unable to sleep. He was given diphenhydramine overnight in the oral form but reports this didn't work as well as what he was given in the ER (he was given IV diphenhydramine at the same dose). He notes his "hip pain" is better. Physical Exam Constitutional: well developed and + ill appearing; + not well nourished and no acute distress Eyes: Icteric sclera Gastrointestinal (Abdomen): normal bowel sounds, soft, nontender, no hepatosplenomegaly Skin: + jaundice Neurologic: moves all extremities and awake; not confused Psychiatric: A+Ox3, euthymic affect Results & Data Results & Data Vital Signs (Past 12 Hours) Vital Signs Temp Pulse Resp BP Pulse Ox O2 Del Method 06/13/25 07:30 36.3 C L 98 H 18 126/77 99 Room Air PG Care Time/CCT Total # of Minutes Spent Total Time Spent with Patient: Total time spent is greater than 50% in coordination of care (as documented) at patient's floor/unit and/or counseling patient: Coding Level of Care Code 58575 SUB INP/OBS CARE 2/35MIN Diagnoses Anemia D64.9 Metabolic acidosis, normal anion gap (NAG) E87.20 Type 2 diabetes mellitus without complication, without long-term current use of insulin E11.9 Diabetes mellitus complication status: without complication Diabetes mellitus buttermaker helper insulin use: without fci use Diabetes mellitus type: type 2 Mixed hyperlipidemia E78.2 Hyperlipidemia type: mixed hyperlipidemia Primary hypertension I10 Hypertension type: primary hypertension Biliary obstruction K83.1 Jaundice R17 Liver mass R16.0 Elevated INR R79.1 Lumbosacral radiculopathy at L5 M54.17 (3) DM (diabetes mellitus) Diabetes mellitus complication status: without complication Diabetes mellitus buttermaker helper insulin use: without fci use Diabetes mellitus type: type 2 Qualified Code(s): E11.9 - Type 2 diabetes mellitus without complications (4) Hyperlipidemia Hyperlipidemia type: mixed hyperlipidemia Qualified Code(s): E78.2 - Mixed hyperlipidemia (5) HTN (hypertension) Hypertension type: primary hypertension Qualified Code(s): I10 - Essential (primary) hypertension
[2025-06-13 22:42] VITALS: RESP 18
[2025-06-14 07:18] LABS: Alanine Aminotransferase 48.0 U/L (7-52); Albumin Globulin Ratio 1.1 (0.9-2); Albumin Level 3.6 gm/dl (3.4-5.0); Anion Gap 13.0 (3-11); Bilirubin,Total 29.0 mg/dl (0.2-1.0); Blood Urea Nitrogen 22.0 mg/dl (6-23); Calcium 9.1 mg/dl (8.6-10.3); Carbon Dioxide 21.0 mmol/L (21-32); Chloride 100.0 mmol/L (98-107); Creatinine Clr Calc Pharmacy 46.7 ml/min; Globulin 3.4 gm/dl (2.5-4.0); Glucose 151.0 mg/dl (70-99(Fasting)); Potassium 3.3 mmol/L (3.5-5.1); Sodium 134.0 mmol/L (136-145); Total Protein 7.0 gm/dl (6.0-8.3)
[2025-06-14 07:24] LABS: INR 1.1 (0.9-1.1); Prothrombin Time 12.0 Seconds (9.0-12.0)
[2025-06-14 07:25] VITALS: O2SAT 99
[2025-06-14 07:26] LABS: Alkaline Phosphatase 485.0 U/L (34-104)
[2025-06-14] MEDS: POTASSIUM CHLORIDE CRTAB 20 MEQ TABCR PO STA (08:46)
[2025-06-14 14:32] VITALS: BP 135/74; PULSE 70; TEMP 97.5
--- NOTE | 2025-06-14 15:47 | Discharge Summary ---
Discharge Summary Date of Service June 14, 2025 Principal Dx & Hospital Course #1 = Principal Diagnosis (1) Anemia: (2) Metabolic acidosis, normal anion gap (NAG): (3) DM (diabetes mellitus): (4) Hyperlipidemia: (5) HTN (hypertension): (6) Biliary obstruction: (7) Jaundice: (8) Liver mass: (9) Elevated INR: (10) Lumbosacral radiculopathy at L5: Plan Cory Landrum is an 87 year old male admitted to [facility] due to biliary obstruction from [facility] awaiting ERCP at [facility] for further workup. Icteric pruritus was treated with cholestyramine. His labs remained stable and he is now being transferred to [facility] for further treatment. No suspicion for cholangitis during his admission at [facility]. Ca19.9 and AFP pending on discharge. B12 level was checked due to mild anemia and subsequently low therefore intramuscular supplementation was started while in the hospital and advised to continue oral supplementation on discharge. Phosphate level was also checked due to overal nutrition concerns and was noted to be low. This was supplemented while in hospital and will defer ongoing treatment to [facility] for this. Of note medications listed below are outpatient medications. Please see discharge from [facility] for any changes to medications. Notes For Next Care Provider Routine follow up from [facility] Follow up Ca 19-9 and AFP results Recheck B12 level after supplementation for 2-3 months Medication Changes From Visit None - transferred to [facility] Admission HPI Per Admitting Provider Manual Diallo is an 85 year old male who presents to the ER due to jaundice and generalized itching. He reports much worse the last 3-4 days but perhaps started noticing changes the last week. Associated with dark urine last few days. He denies any weight loss, appetite loss, change in bowels, abdominal pain, nausea or vomiting. He notes generalized intense itching. No other urinary or respiratory issues. Discharge Exam Constitutional well developed and + ill appearing; + not well nourished and no acute distress Gastrointestinal (Abdomen) normal bowel sounds, soft, nontender, no hepatosplenomegaly Skin + jaundice Neurologic moves all extremities and awake; not confused Psychiatric A+Ox3, euthymic affect Discharge Plan Discharge Items Patient Disposition: Transfer Acute Care Hospital Reason For Visit: Mass with biliary obstruction,OBSTRUCTIVE JAUNDICE Discharge Diagnosis: Obstructive jaundice Malignancy with biliary obstruction Anemia B12 deficiency Hypophosphatemia Condition on Discharge: Fair Activity: Resume your previous activity Non-emergency contact: Primary Care Provider Call non-emergency contact if: you have any medication questions and your s ymptoms worsen Follow-up/Referrals: Tamar Oneill MD [Primary Care Provider] - Diet: Low Fat Addtl Attending Provider Instructions: You were admitted to [facility] due to biliary obstruction from mass awaiting ERCP at [facility] for further workup and ERCP. Icteric pruritus was treated with cholestyramine. Your labs remained stable and you are now being transferred to [facility] for further treatment. Ca19.9 and AFP pending on discharge. You were also diagnosed with B12 deficiency and started on cyanocobalamin inj ections 1000 mcg IM daily, please continue with 1000 mcg PO daily following this. You were also diagnosed with hypophosphatemia treated with oral supplementation and this should be rechecked at [facility] and treated accordingly. Of note medications listed below are outpatient medications. Please see separate scanned sheet for inpatient medications. Pending Studies at Discharge: Yes (Ca19-9, AFP) Stand-Alone Forms: My [facility] Skilled Items Patient informed of condition?: Yes DNR: Yes Discharge Level of Care: Other Communicable Disease: No Discharge Prognosis: Stable Lines: Peripheral IV Urinary Catheter: No Medications and DC Order Prescriptions: Continued (DME) blood sugar diagnostic Strip See Dose Instructions .ROUTE .MEDSUPPLY Qty: 50 5RF Dose Instruction: As directed Rx Instructions: TEST DAILY; IF ELEVATED BLOOD SUGAR MAY TEST TWICE DAILY; DX:E11.9 tadalafil 5 mg tablet 5 mg PO DAILY PRN (Reason: sexual activity) Qty: 10 4RF Rx Instructions: administer approximately 30min before sexual activity; do not use more than 1 dose per 24hrs metformin 1,000 mg tablet 1,000 mg PO BID alfuzosin 10 mg tablet extended release 24 hr 10 mg PO QPM Discharge Orders: Discharge Order (Routine); Ordered 06/14/25 Ordered By: Will Hubbard Admission Data Admit Date/Time: 06/11/25 16:51 Attending Provider: Will Hubbard Admit Provider: Will Hubbard Primary Care Provider: Tamar Oneill Other Providers: Ed Zamorano Hospital Stay Data Consultations 06/11/25 16:40 ED Decision to Admit Stat Diagnostic Imagining Performed 06/11/25 14:23 CT abd pelvis IV con only Stat IMPRESSION: Malignant appearing mass involving the central liver and gallbladder causing mild to moderate intrahepatic biliary dilatation. Differential diagnosis includes gallbladder carcinoma and cholangiocarcinoma. No evidence of metastatic disease seen. Otherwise as described. 06/11/25 16:33 CT chest diagnostic w con Routine IMPRESSION: No CT evidence of metastatic disease in the chest. A hepatic mass and intrahepatic ductal dilatation present at the edge of the [id number]. Please correlate with prior imaging and history of liver cancer. Pending Results Patient Have Any Pending Studies at Discharge: Yes (Ca19-9, AFP) Discharge Instructions Given to Patient (Per Discharging Provider) You were admitted to [facility] due to biliary obstruction from mass awaiting ERCP at [facility] for further workup and ERCP. Icteric pruritus was treated with cholestyramine. Your labs remained stable and you are now being transferred to [place] for further treatment. Ca19.9 and AFP pending on discharge. You were also diagnosed with B12 deficiency and started on cyanocobalamin injections 1000 mcg IM daily, please continue with 1000 mcg PO daily following this. You were also diagnosed with hypophosphatemia treated with oral supplementation and this should be rechecked at [facility] and treated accordingly. Of note medications listed below are outpatient medications. Please see separate scanned sheet for inpatient medications. Total Time Total Time Spent Total Time Spent (In Minutes): 40 Total Time Includes: Examination of the Patient, Discharge Planning, Medication Reconciliation and Communication With Other Providers ([facility] Transfer Center) Coding Level of Care Code 60295 INP/OBS DISCH >30 MIN Diagnoses Anemia D64.9 Metabolic acidosis, normal anion gap (NAG) E87.20 Type 2 diabetes mellitus without complication, without long-term current use of insulin E11.9 Diabetes mellitus complication status: without complication Diabetes mellitus supervisor long goods insulin use: without custodial use Diabetes mellitus type: type 2 Mixed hyperlipidemia E78.2 Hyperlipidemia type: mixed hyperlipidemia Primary hypertension I10 Hypertension type: primary hypertension Biliary obstruction K83.1 Jaundice R17 Liver mass R16.0 Elevated INR R79.1 Lumbosacral radiculopathy at L5 M54.17
== END 2025-06-14 16:03 | disposition short-term general hospital (02) | DRG 442 ==
LOC: ED 13:03 → 3N 16:51